=== PATIENT | male | born 1990 | race African-American/Black ===

== ENCOUNTER 2018-11-21 00:39 | Inpatient (IN) | payer OTHER, SELFPAY ==
[2018-11-21] MEDS ORDERED: Acetaminophen 500 MG TAB ONE ×2 (02:07→02:08)
[2018-11-21 03:59] LABS: #Basophils 0.1 thou/uL (0.0-0.2); #Eosinphils 0.3 thou/uL (0.0-0.7); #Lymphocytes 2.3 thou/uL (1.20-3.40); #Neutrophils 4.2 thou/uL (1.40-6.50); %Basophils 0.9 % (0.0-1.0); %Eosinophils 3.6 % (0.0-10.0); %Monocytes 13.1 % (0.0-10.0); %Neutrophils 53.4 % (42.0-75.0); Hemoglobin 14.4 g/dL (14.0-18.0); Mean Corpuscular HGB CONC 31.6 g/dL (32.0-36.0); Mean Corpuscular Hemoglobin 27.5 pg (27.0-31.0); Mean Corpuscular Volume 87.1 fL (78.0-98.0); Platelet Count 199 thou/uL (130-400); RBC Distribution Width 11.1 % (11.5-14.5); Red Blood Cell (RBC) Count 5.23 mill/uL (4.70-6.10); White Blood Cell (WBC) Count 7.8 thou/uL (4.8-10.8)
[2018-11-21 04:06] LABS: PTT 33.6 SEC (22.9-36.1); Prothrombin Time 13.2 SEC (12.0-14.7)
[2018-11-21 04:10] LABS: ALT (SGPT) 24 U/L (8-55); AST (SGOT) 16 U/L (5-34); Albumin 4.2 g/dL (3.5-5.0); Alkaline Phosphatase 113 U/L (40-150); Anion Gap 11 mmol/L (10-20); BUN (Urea Nitrogen) 13 mg/dL (8.9-20.6); Bilirubin, Total 0.4 mg/dL (0.2-1.2); Calc. Creatinine Clearance 0 mL/min (70-130); Calcium 9.2 mg/dL (7.8-10.44); Carbon Dioxide 28 mmol/L (22-29); Chloride 102 mmol/L (98-107); Estimated GFR-MDRD Greater than 90; Globulin 3.4 g/dL (2.4-3.5); Glucose 90 mg/dL (70-105); Potassium 4.2 mmol/L (3.5-5.1); Protein, Total 7.6 g/dL (6.0-8.3); Sodium 137 mmol/L (136-145)
[2018-11-21] MEDS ORDERED: Lidocaine 1% (PF) 30 ML VIAL ONE (04:50)
[2018-11-21] MEDS ORDERED: Ondansetron ODT 4 MG TAB PO PRN ×2 (07:15→08:03)
[2018-11-21] MEDS ORDERED: Sodium Chloride 0.9% 1,000 ML IV SCH (07:15)
[2018-11-21] MEDS ORDERED: Ondansetron PF 4 MG/2 ML Vial IVP PRN ×2 (07:15→08:03)
[2018-11-21] MEDS ORDERED: Acetaminophen 325 MG TAB PO PRN ×2 (07:15→08:03)
[2018-11-21 07:24] VITALS: BMI 33.7
[2018-11-21] MEDS ORDERED: Bisacodyl 5 MG TAB PO PRN (08:03)
[2018-11-21] MEDS ORDERED: Zolpidem Tartrate 5 MG TAB PO PRN (08:03)
[2018-11-21] MEDS ORDERED: Cepastat Lozenges 1 LOZ PO PRN (08:03)
[2018-11-21] MEDS ORDERED: Artificial Tears 18 DROP/0.9 ML EA EYE PRN (08:03)
[2018-11-21] MEDS ORDERED: Eucerin (Mineral Oil/Petrolatum,White) 30 gm Jar TOP PRN (08:03)
[2018-11-21] MEDS ORDERED: Sodium Chloride 0.65% Nasal 44 ML BOT EA NARE PRN (08:03)
[2018-11-21] MEDS ORDERED: Loratadine 10 MG TAB PO PRN (08:03)
[2018-11-21] MEDS ORDERED: Diabetic Tussin 200 MG/10 ML UDCUP PO PRN (08:03)
[2018-11-21] MEDS ORDERED: hydrALAZINE 20 MG/ML VIAL SLOW IVP PRN (08:03)
[2018-11-21] MEDS ORDERED: Loperamide HCl 2 MG CAP PO PRN (08:03)
[2018-11-21] MEDS ORDERED: Bisacodyl 10 MG SUPP PR PRN (08:03)
[2018-11-21] MEDS ORDERED: Calcium Carbonate 500 MG ChewTAB PO PRN (08:03)
[2018-11-21] MEDS ORDERED: Senokot S 8.6-50 MG TAB PO PRN (08:03)
[2018-11-21] MEDS ORDERED: Morphine 2 MG/ML SYRINGE SLOW IVP PRN (08:04)
[2018-11-21] MEDS ORDERED: VANCOMYCIN IVPB PRN (08:04)
[2018-11-21] MEDS ORDERED: Ketorolac Tromethamine 30 MG/ML VIAL IVP PRN (08:04)
--- NOTE | 2018-11-21 08:11 | CT ---
PRELIMINARY REPORT/[facility]/EMERGENTY AFTER-HOURS PROCEDURE CT Abdomen and Pelvis With Contrast EXAM DATE/TIME: 11/21/2018 2:21 AM CLINICAL HISTORY: 28 years old, male; Pain and injury or trauma; Fall; Initial encounter; Abrasion; Abdominal pain; Loc alized; Lower; Patient HX: Praveen garcia; 28 yo male presents for evaluation of right sided groin pain. Stephane lemon states that two nights ago he fell down. When he fell his legs were abducted, but he is unsure how exactly he fell. He states he hurt his shoulder at the same time, but that has subsided. Patient states that tonight his pain continued to worsen and then he felt a swelling in his genital area behi nd his right testicle. He then felt down there and there was blood present. TECHNIQUE: Axial computed tomography images of the abdomen and pelvis with intravenous contrast. Coronal and sagittal reformatted images were created and reviewed. COMPARISON: No relevant prior studies available. FINDINGS: Lower thorax: The visualized portions of the lung bases are normal. ABDOMEN: Liver: There are no focal liver lesions identified. Gallbladder and bile ducts: The gallbladder is contracted but otherwise normal. Pancreas: The pancreas appears normal. No ductal dilatation. Spleen: The spleen is normal. Adrenals: The adrenal glands are normal. Kidneys and ureters: The kidneys appear normal. No hydronephrosis. Stomach and bowel: The stomach is normal. The duodenum is unremarkable. The colon is normal. Appendix: A normal appendix is identified. PELVIS: Bladder: The bladder is normal. Reproductive: The prostate gland and seminal vesicles are normal. ABDOMEN and PELVIS: Intraperitoneal space: Normal. No free air. No significant fluid collection. Bones/joints: No acute fracture. No dislocation. Soft tissues: There is a 1.8 x 2.3 x 2.3 cm hypoattenuating collection with hyperattenuating rim with in the RIGHT perennial soft tissues suggestive of small abscess or hematoma. Vasculature: Normal. No abdominal aortic aneurysm. Lymph nodes: Normal. No enlarged lymph nodes. IMPRESSION: RIGHT perennial soft tissue hematoma or abscess. Correlate clinically. Thank you for allowing us to participate in the care of your patient. Dictated and Authenticated by: Ankur Pro MD 11/21/2018 3:19 AM Central Time ([place] & [place]) FINAL REPORT CT ABDOMEN AND PELVIS WITH IV CONTRAST CT LUMBAR SPINE NONCONTRAST: DATE: 11/21/2018. TIME: Performed on an emergency basis at 0223 hours. HISTORY: Fall. Abdomen injury. Back injury. FINDINGS: Agree with the preliminary report by Dr. Pro from [facility]. No acute traumatic injury is apparent. Vertebral body height and alignment of the lumbar spine are intact without acute fracture or dislocation. AT the right perineum, well-circumscribed inflamed fluid collection is confirmed, m easuring up to 2.3 cm greatest diameter. Probable abscess. POS: [facility]
[2018-11-21] MEDS: Enoxaparin Sodium 40 MG/0.4 ML SYRINGE SC SCH (08:34)
[2018-11-21] MEDS: Saccharomyces boulardii 250 MG CAP PO SCH (08:34)
[2018-11-21] MEDS: Famotidine 20 MG TAB PO SCH ×2 (08:34→20:05)
[2018-11-21] MEDS: Sodium Chloride 0.9% 1,000 ML IV SCH ×2 (08:35→17:05)
[2018-11-21] MEDS ORDERED: Vancomycin HCl 1 GM in Premix Bag 1 BAG IVPB SCH (09:00)
[2018-11-21] MEDS: HYDROcodone/Acetaminophen 5/325 mg Tablet PO PRN ×3 (10:27→22:03)
--- NOTE | 2018-11-21 11:21 | HP ---
PRIMARY CARE PHYSICIAN: [facility] Call admission. REASON FOR ADMISSION: Perineal abscess/hematoma. HISTORY OF PRESENT ILLNESS: A 28-year-old male with no significant medical history, who presented to emergency room with perineal pain. The patient reports that couple of days ago when he was returning from his upstairs at house and he slipped one stair and subsequently, he had injury to the perineal area and since then he was complaining of perineal pain which was about 8/10 in intensity. He did not have any drainage. He did not have any fever, chills. The patient's pain was not improving with local pain medication and that is why he decided to come to emergency room for evaluation. In the emergency room, he had CT abdomen and pelvis, which showed right perineal soft tissue hematoma versus abscess. The patient has received vancomycin in the emergency room. Subsequently, he was admitted to medical floor. The patient denies any fever, chills, UTI symptoms. He denies any constipation, diarrhea, melena, hematochezia. He is struggling with pilonidal sinus but is currently resolved. REVIEW OF SYSTEMS: CONSTITUTIONAL: Negative for weight loss or gain, ability to conduct usual activities. SKIN: Negative for rash, itching. EYES: Negative for double vision, pain. ENT/MOUTH: Negative for nose bleeding, neck stiffness, pain, tenderness. CARDIOVASCULAR: Negative for palpitations, dyspnea on exertion, orthopnea. RESPIRATORY: Negative for shortness of breath, wheezing, cough, hemoptysis, fever or night sweats. GASTROINTESTINAL: Negative for poor appetite, abdominal pain, heartburn, nausea, vomiting, constipation, or diarrhea. GENITOURINARY: Negative for urgency, frequency, dysuria, nocturia. MUSCULOSKELETAL: Negative for pain, swelling. NEUROLOGIC/PSYCHIATRIC: Negative for anxiety, depression. ALLERGY/IMMUNOLOGIC: Negative for skin rash, bleeding tendency. Please see my HPI for pertinent positive and negative. All other review of systems reviewed and negative except as mentioned in HPI. PAST MEDICAL HISTORY: Reviewed and negative. PAST SURGICAL HISTORY: Reviewed and negative. PAST PSYCHIATRIC HISTORY: Reviewed and negative. SOCIAL HISTORY: The patient is living at home with his mother. He drinks alcohol socially. He denies any smoking. He denies any other illicit drug abuse. FAMILY HISTORY: No family history of coronary artery disease, stroke, or cancer. ALLERGIES: NO KNOWN DRUG ALLERGIES. CURRENT HOME MEDICATIONS: The patient is not taking any currently prescribed medication. He was taking [id number] pain medication at home. EMERGENCY ROOM COURSE: The patient has received Tylenol 1 g and vancomycin 1 g. PHYSICAL EXAMINATION: VITAL SIGNS: On arrival, blood pressure 122/78, pulse 74, respiratory rate 16, temperature 98.1, saturation 97% on room air. Weight 95.2 kg. GENERAL: The patient is currently alert, oriented, in no acute distress. HEENT: Head; normocephalic, atraumatic. Eyes; pupils round, reactive to light. Extraocular muscle intact. ENT; oropharynx within normal limits. Moist mucous membranes. No oral lesion. No pharyngeal erythema. No exudate. NECK: Supple. No JVD. No thyromegaly. No carotid bruit. No jugular venous distention. LUNGS: Clear to auscultation without any rhonchi or rales. CARDIAC: S1 and S2 regular without any murmur. ABDOMEN: Soft and benign without any tenderness. GENITOURINARY: Patient does have mild tenderness in the right perineum with mild swelling, but without any drainage, without any obvious erythema. BACK: Unremarkable. No CVA tenderness. EXTREMITIES: Upper extremities, passive movement of all joints is normal. Lower extremities, no edema, good distal pulsation. SKIN: No skin rash. The patient does have a healed pilonidal sinus in gluteal cleft. SIGNIFICANT LABS: CT abdomen and pelvis showing right perineal soft tissue hematoma versus abscess. CBC; WBC 7.8, hemoglobin 14.4, platelet 199. INR 1.0. BMP: Sodium 139, potassium 4.2, chloride 102, carbon dioxide 28, BUN 13, creatinine 0.96, glucose 90, calcium 9.2. LFT: AST 16, ALT 24, alkaline phosphatase 113, albumin 4.2. CRP 2.87. Lactic acid 0.9. ASSESSMENT AND PLAN: IMPRESSION: 1. Right perineal hematoma/abscess. Most likely, this patient has bruised clinically based on examination without any drainage. He does not have any fever. He does not have any leukocytosis. His CRP slightly elevated. At this point, we will keep him on hospital and give empirically vancomycin for now. If culture is negative, then we will consider discharging him home tomorrow with oral antibiotic therapy for few days for benefit of doubt. We will repeat labs tomorrow and we will control today his pain with pain medication. 2. History of pilonidal cyst. The patient is advised to follow up with General Surgery as an outpatient basis if needed. 3. Obesity with BMI 33. Dietary education given. Weight loss education given. Healthy lifestyle measure discussed with the patient. 4. Deep venous thrombosis prophylaxis. Lovenox 40 mg subcu daily. 5. Gastrointestinal prophylaxis, Pepcid 20 mg p.o. b.i.d. CODE STATUS: The patient is full code. DISPOSITION PLAN: Based on clinical course, likely soon within 24-48 hours. Plan of care discussed with the patient and mother at bedside. Job ID: [id number]
[2018-11-21] MEDS ORDERED: ISOVUE-370 76%-LOCM 1 ML ONE (11:24)
[2018-11-22] MEDS: Sodium Chloride 0.9% 1,000 ML IV SCH (05:20)
[2018-11-22 07:18] LABS: #Eosinphils 0.2 thou/uL (0.0-0.7); #Lymphocytes 1.4 thou/uL (1.20-3.40); #Monocytes 0.8 thou/uL (0.11-0.59); %Basophils 0.6 % (0.0-1.0); %Eosinophils 4.2 % (0.0-10.0); %Lymphocytes 25.6 % (21.0-51.0); %Monocytes 14.2 % (0.0-10.0); %Neutrophils 55.4 % (42.0-75.0); Hemoglobin 15.1 g/dL (14.0-18.0); Mean Corpuscular HGB CONC 31.6 g/dL (32.0-36.0); Mean Corpuscular Hemoglobin 27.3 pg (27.0-31.0); Mean Corpuscular Volume 86.5 fL (78.0-98.0); Mean Platelet Volume 8.4 fL (7.4-10.4); Platelet Count 193 thou/uL (130-400); RBC Distribution Width 10.9 % (11.5-14.5); Red Blood Cell (RBC) Count 5.52 mill/uL (4.70-6.10); White Blood Cell (WBC) Count 5.4 thou/uL (4.8-10.8)
[2018-11-22 07:19] VITALS: BP 138/85; TEMP 98.5
[2018-11-22 07:36] LABS: Anion Gap 11 mmol/L (10-20); BUN (Urea Nitrogen) 7 mg/dL (8.9-20.6); CRP (Inflammatory) 2.37 mg/dL (= or < 0.5); Calc. Creatinine Clearance 169 mL/min (70-130); Calcium 9.2 mg/dL (7.8-10.44); Carbon Dioxide 26 mmol/L (22-29); Chloride 106 mmol/L (98-107); Estimated GFR-MDRD Greater than 90; Glucose 98 mg/dL (70-105); Potassium 4.2 mmol/L (3.5-5.1); Sodium 139 mmol/L (136-145)
[2018-11-22 07:38] LABS: Vancomycin, Trough 32.9 ug/mL
[2018-11-22] MEDS: Enoxaparin Sodium 40 MG/0.4 ML SYRINGE SC SCH (08:12)
[2018-11-22] MEDS: Famotidine 20 MG TAB PO SCH (08:12)
[2018-11-22] MEDS: Saccharomyces boulardii 250 MG CAP PO SCH (08:12)
--- NOTE | 2018-11-22 09:33 | PDOC.PN ---
- Subjective Encounter Start Date: 11/22/18 Encounter Start Time: 08:00 Patient seen and examined. No new complaints. No overnight events - Objective Resuscitation Status - Order Detail: 11/21/18 08:03 Resuscitation Status Routine Resuscitation Status: FULL: Full Resuscitation MAR Reviewed: Yes Vital Signs & Weight: Vital Signs (12 hours) Temp Pulse Resp BP Pulse Ox 11/22/18 08:00 94 L 11/22/18 07:15 98.5 F 84 18 138/85 94 L 11/22/18 04:00 98.6 F 81 18 132/81 97 11/22/18 00:00 98.2 F 103 H 18 147/82 H 94 L Weight Weight 209 lb 7.026 oz I&O: 11/21/18 11/22/18 11/23/18 06:59 06:59 06:59 Intake Total 600 Balance 600 Result Diagrams: 11/22/18 06:53 11/22/18 06:53 Phys Exam - Physical Examination Constitutional: NAD HEENT: PERRLA, moist MMs, sclera anicteric Neck: no JVD, supple Respiratory: no wheezing, no rales, no rhonchi Cardiovascular: RRR, no significant murmur, no rub Gastrointestinal: soft, non-tender, no distention, positive bowel sounds Musculoskeletal: no edema, pulses present Neurological: non-focal, normal sensation, moves all 4 limbs Psychiatric: normal affect, A&O x 3 Skin: no rash, normal turgor Dx/Plan (1) Perineal abscess Code(s): L02.215 - CUTANEOUS ABSCESS OF PERINEUM Status: Acute (2) Obesity (BMI 30.0-34.9) Code(s): E66.9 - OBESITY, UNSPECIFIED Status: Chronic - Plan cont current plan of care, plan discussed w/ family * medication reviewed as below * symptomatic treatment * see my discharge summery. Review of Systems - Review of Systems ENT: negative: Ear Pain, Ear Discharge, Nose Pain, Nose Discharge, Nose Congestion, Mouth Pain, Mouth Swelling, Throat Pain, Throat Swelling, Other Respiratory: negative: Cough, Dry, Shortness of Breath, Hemoptysis, SOB with Excertion, Pleuritic Pain, Sputum, Wheezing Cardiovascular: negative: chest pain, palpitations, orthopnea, paroxysmal nocturnal dyspnea, edema, light headedness, other Gastrointestinal: negative: Nausea, Vomiting, Abdominal Pain, Diarrhea, Constipation, Melena, Hematochezia, Other Genitourinary: negative: Dysuria, Frequency, Incontinence, Hematuria, Retention , Other Musculoskeletal: negative: Neck Pain, Shoulder Pain, Arm Pain, Back Pain, Hand Pain, Leg Pain, Foot Pain, Other Skin: negative: Rash, Lesions, Speedy, Bruising, Other - Medications/Allergies Allergies/Adverse Reactions: Allergies Allergy/AdvReac Type Severity Reaction Status Date / Time No Known Allergies Allergy Verified 11/21/18 11:01 Medications: Current Medications Acetaminophen (Tylenol) 650 mg PO Q4H PRN PRN Reason: Headache/Fever/Mild Pain (1-3) Hydrocodone Bitart/Acetaminophen ([place] 5/325) 1 tab PO Q4H PRN PRN Reason: Moderate Pain (4-6) Last Admin: 11/21/18 22:03 Dose: 1 tab Artificial Tears (Tears Naturale) 2 drop EA EYE PRN PRN PRN Reason: Dry Eyes Bisacodyl (Dulcolax) 10 mg PO DAILYPRN PRN PRN Reason: Constipation Bisacodyl (Dulcolax) 10 mg ND DAILYPRN PRN PRN Reason: Constipation Calcium Carbonate (Tums) 1,000 mg PO Q4H PRN PRN Reason: Heartburn or Indigestion Enoxaparin Sodium (Lovenox) 40 mg SC 0900 [facility] Last Admin: 11/22/18 08:12 Dose: Not Given Famotidine (Pepcid) 20 mg PO BID [facility] Last Admin: 11/22/18 08:12 Dose: 20 mg Guaifenesin (Robitussin Sf) 200 mg PO Q4H PRN PRN Reason: Cough Hydralazine HCl (Apresoline) 10 mg SLOW IVP Q4H PRN PRN Reason: SBP > 180 and HR < 70 Vancomycin HCl 2 gm/ Sodium (Chloride) 500 mls @ 250 mls/hr IVPB 0800,1600, 2359 [facility] Last Admin: 11/22/18 08:12 Dose: Not Given Ketorolac Tromethamine (Toradol) 15 mg IVP Q6H PRN PRN Reason: Moderate Pain (4-6) Stop: 11/26/18 08:05 Loperamide HCl (Imodium) 2 mg PO PRN PRN PRN Reason: Diarrhea/Loose Stools Loratadine (Claritin) 10 mg PO DAILYPRN PRN PRN Reason: Sinus Symptoms Mineral Oil/White Petrolatum (Eucerin Cream) 0 gm TOP BIDPRN PRN PRN Reason: Dry Skin Miscellaneous Medication (Pharmacy To Dose) 1 each IVPB PRN PRN PRN Reason: Pharmacy to dose Morphine Sulfate (Morphine) 2 mg SLOW IVP Q4H PRN PRN Reason: Severe Pain (7-10) Ondansetron HCl (Zofran Odt) 4 mg PO Q6H PRN PRN Reason: Nausea/Vomiting Ondansetron HCl (Zofran) 4 mg IVP Q6H PRN PRN Reason: Nausea/Vomiting Saccharomyces Boulardii (Florastor) 250 mg PO DAILY [facility] Last Admin: 11/22/18 08:12 Dose: 250 mg Senna/Docusate Sodium (Senokot S) 2 tab PO BID PRN PRN Reason: Constipation Sodium Chloride (Flush - Normal Saline) 10 ml IVF Q12HR [facility] Last Admin: 11/22/18 08:12 Dose: Not Given Sodium Chloride (Flush - Normal Saline) 10 ml IVF PRN PRN PRN Reason: Saline Flush Sodium Chloride ([place] Nasal [place] 0.65%) 0 ml EA NARE QIDPRN PRN PRN Reason: Nasal Congestion Throat Lozenges (Cepastat Lozenges) 1 chandrakant PO Q2H PRN PRN Reason: Sore Throat Zolpidem Tartrate (Ambien) 5 mg PO HSPRN PRN PRN Reason: Insomnia
--- NOTE | 2018-11-22 09:37 | DIS ---
DATE OF ADMISSION: 11/21/2018 DATE OF DISCHARGE: 11/22/2018 PRIMARY CARE PHYSICIAN: [facility] Call Admission. DISCHARGE DISPOSITION: Home. PRIMARY DISCHARGE DIAGNOSIS: Perineal abscess/bruits. SECONDARY DISCHARGE DIAGNOSIS: Obesity with body mass index 33. PRIMARY PROCEDURE/OPERATION: None. RADIOLOGICAL INVESTIGATION: CT abdomen and pelvis showed perineal abscess/bruits on the right side. SIGNIFICANT LABORATORY DATA: WBC 5.4, hemoglobin 15.1, platelet 193. INR 1.0. Sodium 139, potassium 4.2, BUN 7, creatinine 0.89, calcium 9.2. LFT normal. CRP 2.37. Blood culture negative. DISCHARGE MEDICATION: 1. Bactrim DS one tablet twice daily for 5 days. 2. Tylenol No. 3 one or two tablets q.6 hourly p.r.n. for pain. 3. Ibuprofen 400 mg p.o. q.4 hourly p.r.n. for pain. CONTRAINDICATION: None. CODE STATUS: Full code. INPATIENT REINFORCING METAL WORKER: None. ALLERGIES: NO KNOWN DRUG ALLERGIES. DISCHARGE PLAN: Posthospital, the patient will follow up with primary care physician as instructed. HOSPITAL COURSE: A 28-year-old male who had mechanical fall at home while coming down from stairs at his home and he injured the perineal area. Subsequently, he was having pain in that area and that is why, he came to emergency room for evaluation. CT abdomen and pelvis showed perineal hematoma versus abscess. While in hospital, his pain was controlled with pain medication and he was given empirically vancomycin. He does not have any erythema at this point, and he has no drainage. His pain is also well controlled. For benefit of doubt, we prescribed Bactrim DS upon discharge and I have prescribed pain medication with Tylenol No. 3 and ibuprofen to use p.r.n. basis. The patient is seen and examined at bedside today. REVIEW OF SYSTEMS: All review of systems reviewed with him and negative. PHYSICAL EXAMINATION: VITAL SIGNS: Currently, temperature 98.5, pulse 84, respiratory rate 18, saturation 94% on room air, blood pressure 138/85, weight 209 pounds. GENERAL: The patient is currently alert, awake, in no obvious acute distress. HEENT: Head; normocephalic, atraumatic. Eyes; pupils round, reactive to light. Extraocular muscle intact. ENT; oropharynx within normal limits. Moist mucous membranes. No oral lesion. No pharyngeal erythema. No exudate. NECK: Supple. No JVD. No thyromegaly. No carotid bruit. LUNGS: Clear to auscultation without any rhonchi or rales. CARDIAC: S1, S2. Regular without any murmur. ABDOMEN: Soft and benign. EXTREMITIES: No edema. NEUROLOGICAL: Nonfocal examination. PLAN OF CARE: Discussed with the patient and his family member at bedside. Job ID: [id number]
== END 2018-11-22 12:15 | disposition home or self-care (01) | DRG 603 ==
LOC: ERS 00:39 → T4-A 05:15
PROVIDERS: ADMIT Hospitalist; ATTEND Hospitalist
DX: L02.215 Cutaneous abscess of perineum (principal); E66.9 Obesity, unspecified; Z68.30 Body mass index [BMI] 30.0-30.9, adult
CPT/HCPCS: 10061; 36415; 74177; 80048; 80053; 80202; 83605; 85025; 85610; 85652; 85730; 86140; 87040; 87070; 87076; 87205; 90471; 90686; 96365; G0008; J1650; J2001; J3370; J7050; Q9966